=== PATIENT | female | born 1980 | race Caucasian/White ===

== ENCOUNTER 2020-12-28 22:21 | Emergency (ER) | payer OTHER, SELFPAY ==
[2020-12-28 22:24] VITALS: BP 126/84; PULSE 100; RESP 18; TEMP 36.4; O2SAT 98; BMI 30.1
--- NOTE | 2020-12-28 23:33 | PC.NURSE ---
Pt ambulating into room 7 from the waiting room with a steady gait. Pt is CAOx4, speaking full sentences, pt explains increased discharge (clear in color) with urinary frequency and odor. Pt reports a new sexual partner, unsure if exposed to any STIs, requesting treatment. 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 Pt denies N/V and fever. VSS at this time, UA obtained and sent for anlysis. Awaiting primary MD cheung.
[2020-12-28 23:38] LABS: Appearance Urine CLEAR; Color Urine YELLOW; Glucose Urine UA NEG (NEG); Leukocyte Esterase Urine NEG (NEG); Nitrite Urine NEG (NEG); PH 5.5 (5.0-8.0); Specific Gravity - Urine 1.025 (1.005-1.025); UACC Culture Trigger NO; UPreg QC Valid YES; Urine Blood NEG (NEG); Urine Ketones NEG (NEG); Urine Pregnancy NEGATIVE (NEGATIVE); Urine Protein NEG (NEG-TRACE)
--- NOTE | 2020-12-28 23:59 | PC.NURSE ---
at bedside for primary eval.
--- NOTE | 2020-12-29 00:12 | ED.FEMALEGU ---
HPI - Female Genitourinary General Chief complaint: Urogenital-Female Stated complaint: vaginal leaking Time Seen by Provider: 12/28/20 23:55 Source: patient Mode of arrival: ambulatory Limitations: no limitations History of Present Illness HPI Narrative: Patient comes emergency room complaining of urine leakage. Patient states for the last 5 years, she has had stress urinary incontinence. Patient states that lately she has noticed that she has worsening symptoms especially with laughing, coughing. The reason she came to emergency room is because she feels that there is increased pressure in her vagina. Patient complaining of dyspareunia for the last couple of weeks. Patient states that she is not concerned about having a sexually transmitted disease. Patient states she is monogamous. However her sexual partner is known to have multiple partners. Patient denies vaginal discharge. Related Data Allergies Allergy/AdvReac Type Severity Reaction Status Date / Time No Known Drug Allergies AdvReac Unknown Verified 12/28/20 22:31 dust Allergy Itchy Eyes Uncoded 12/28/20 22:31 Review of Systems Review of Systems: Constitutional : No Weight loss, No Fever, No Chills, No Night Sweats, No Fatigue, No Malaise ENT/Mouth : No Hearing loss, No Ear Pain, No Nasal Congestion, No Sinus Pain, No Hoarseness, No sore throat, No Rhinorrhea, No Swallowing Difficulty Eyes: No Eye Pain, No Swelling, No Redness, No Foreign Body, No Discharge, No Vision Changes Cardiovascular : No Chest Pain, No SOB, No Dyspnea on Exertion, No Orthopnea, No Edema, No Palpitations Respiratory : No Cough, No Sputum, No Wheezing, No Smoke Exposure, No Dyspnea Gastrointestinal : No Nausea, No Vomiting, No Diarrhea, No Constipation, No abdominal Pain, No Hematochezia, No Melena Genitourinary : States she has irregular menstrual periods, No Dysuria, complaining of dyspareunia, complaining of stress urinary incontinence, No Hematuria, No Flank Pain, No Urinary Flow Changes, No Hesitancy Musculoskeletal : No joint pain, No Myalgias, No Joint Swelling Skin : No Skin Lesions, No rash Neuro : No Weakness, No Numbness, No Paresthesias, No Loss of Consciousness, No Dizziness, No Headache Psych : No Anxiety/Panic, No Depression, No SI/HI/AH/VH, No Social Issues, Heme/Lymph: No Bruising, No Bleeding,No Lymphadenopathy Endocrine : No Polyuria, No Polydipsia, No Temperature Intolerance PMFSH Past Medical History Medical History Hyperthyroidism Normal Pap smear Surgical History Tubal ligation status Social History Social History Advance Directives: No Physical Exam Vital Signs: Vital Signs: Last Vital Signs Temp 97.6 F 12/28/20 22:24 Pulse 100 12/28/20 22:24 Resp 18 12/28/20 22:24 BP 126/84 12/28/20 22:24 Pulse Ox 98 12/28/20 22:24 Body Mass Index 30.1 Appearance: Alert. Oriented X3. No acute distress. Eyes: Pupils equal, round and reactive to light. ENT: Pharynx normal. Neck: Normal inspection. Neck supple. No lymph nodes noted. No crepitus CVS: Normal heart rate and rhythm. Pulses normal. Normal S1 and S2 Respiratory: No respiratory distress. Breath sounds normal. No Wheezing. No rales Abdomen: Soft and nontender. No rigidity. No distention. : Cervix normal, no vaginal bleeding, no vaginal secretion, cervix has a mildly whitish discoloration at the os, no vaginal/bladder prolapse Skin: Skin warm and dry. Normal skin color. Normal skin turgor. Extremities: No lower extremity edema. No lower extremity edema. No Lacerations. No Rash Neuro: Oriented X 3. No motor deficit. No sensory deficit. Moving all extermities. No slurred speech. Course Course Course Narrative: I discussed with the patient getting empiric treatment for STDs, patient declined, states she will wait for the chlamydia urine test. Patient aware that it may take several days. Patient requesting a phone number flu see an OBGYN to get treatment for the stress urinary incontinence MDM - Female Genitourinary Lab Data Labs: Lab Results 12/28/20 12/28/20 Range/Units 23:28 23:28 Urine Color YELLOW Urine Appearance CLEAR Urine pH 5.5 (5.0-8.0) Ur Specific [place] 1.025 (1.005-1.025) Urine Protein NEG (NEG-TRACE) MG/DL Urine Glucose (UA) NEG (NEG) MG/DL Urine Ketones NEG (NEG) MG/DL Urine Blood NEG (NEG) Urine Nitrite NEG (NEG) Ur Leukocyte Esterase NEG (NEG) Urine Test NEGATIVE (NEGATIVE) Discharge Plan Discharge Clinical Impression: PHILLIP (stress urinary incontinence, female) Patient Disposition: Home, Self-Care Instructions: Kegel Exercises for Women (DC), Urinary Incontinence (ED) Additional Instructions: Please follow-up with your OBGYN. Please follow-up with your primary care physician tomorrow. If you have any worsening or new symptoms, please return to the emergency room or call 911 Referrals: Osman Middleton MD [Physician] - 2 days
[2020-12-29 00:29] VITALS: BP 118/60; PULSE 71; RESP 16; O2SAT 100
--- NOTE | 2020-12-29 00:30 | PC.NURSE ---
This RN chaperoning for pelvic exam, pt tolerating exam well. MD discussing results and plan for DC. VSS, awaiting DC paperwork. Continue to monitor.
[2020-12-29 03:37] LABS: CT PCR NOT DETECTED (Not Detect.); NG PCR NOT DETECTED (Not Detect.)
== END 2020-12-29 00:42 | disposition home or self-care (01) ==
PROVIDERS: Emergency Provider Emergency Medicine
DX: N39.3 Stress incontinence (female) (male) (principal)
CPT/HCPCS: 81003; 81025; 87491; 87591; 99284